=== PATIENT | male | born 1940 | race Asian ===

== ENCOUNTER 2023-04-09 08:40 | Emergency (ER) | payer SELFPAY ==
[2023-04-09] MEDS ORDERED: Sodium Bicarb 50 MEQ/50 ML Abboject 8.4% SYRINGE ONE (08:44)
[2023-04-09] MEDS ORDERED: Calcium Chloride 1 GM/10 ML Abboject SYRINGE ONE (08:44)
[2023-04-09] MEDS ORDERED: EPINEPHrine 1 MG/10 ML Abboject SYRINGE ONE (08:44)
== END 2023-04-09 08:47 | disposition expired ==
LOC: ERS 08:40
DX: I46.9 Cardiac arrest, cause unspecified (principal)
CPT/HCPCS: 31500; 92950; J0171